=== PATIENT | female | born 1960 | race Caucasian/White ===

== ENCOUNTER 2019-01-04 12:04 | Emergency (ER) | payer OTHER ==
[~2019-01-04] VITALS: Ht 162.6 cm; Wt 76.2 kg
[2019-01-04 12:19] LABS: URINE BILIRUBIN NEGATIVE (Negative); URINE BLOOD 2+ (Negative); URINE CLARITY CLEAR; URINE COLOR YELLOW; URINE GLUCOSE-RANDOM NEGATIVE (Negative); URINE KETONES NEGATIVE (Negative); URINE LEUKOCYTES-REFLEX 1+ (Negative); URINE NITRITE-REFLEX NEGATIVE (Negative); URINE PROTEIN NEGATIVE (Negative); URINE UROBILINOGEN 0.2 E.U./dl (0.2-1.0)
[2019-01-04] MEDS ORDERED: LISINOPRIL10 MG PO (12:19)
[2019-01-04] MEDS ORDERED: INDERAL LA80 MG PO (12:19)
[2019-01-04] MEDS ORDERED: TRIAMTERENE-HC1 EAC2 PO (12:20)
[2019-01-04] MEDS ORDERED: ESTRACE0.5 MG PO (12:22)
[2019-01-04] MEDS ORDERED: OMEPRAZOLE 20 M20 M1 PO (12:22)
[2019-01-04 12:31] LABS: ABSOLUTE BASOPHILS 0.1 thou/uL (0.0-0.2); ABSOLUTE EOSINOPHILS 0.1 thou/uL (0.0-0.7); ABSOLUTE MONOCYTES 0.5 thou/uL (0.0-1.2); ABSOLUTE NEUTROPHILS 5.4 thou/uL (1.6-8.1); BASOPHILS 0.8 %; EOSINOPHILS 1.6 %; HEMATOCRIT 46.1 % (37.0-47.0); HEMOGLOBIN 15.9 gm/dL (12.0-15.0); LYMPHOCYTES 32.9 %; MCH 28.2 pg (26.0-34.0); MCHC 34.5 g/dL (28.0-37.0); MCV 81.9 fL (80.0-100.0); MONOCYTES 5.9 %; NUCLEATED RBCS 0 /100WBC; PLATELET COUNT* 286 thou/uL (150-400); POLYS 58.8 %; RBC 5.64 mil/uL (4.20-5.00); RDW-CV 14.1 % (10.5-14.5); WBC 9.2 thou/uL (4.0-11.0)
[2019-01-04 12:39] LABS: SQUAMOUS 0-3 Few /LPF (0-3)
[2019-01-04 12:40] LABS: BACTERIA-REFLEX >30 Many /HPF (None Seen); CASTS None Seen /LPF (None Seen); CRYSTALS None Seen /LPF (None Seen); URINE RBC 3-10 Few /HPF (0-2); WBC CLUMPS Few (None Seen)
[2019-01-04 12:51] LABS: CALCIUM 9.2 mg/dL (8.5-10.1); CREATININE 1.6 mg/dL (0.6-1.3); POTASSIUM 4.1 mmol/L (3.5-5.1)
[2019-01-04 12:55] LABS: ALBUMIN 3.7 g/dL (3.4-5.0); TOTAL BILIRUBIN 0.5 mg/dL (<0.1-1.0); TOTAL PROTEIN 7.6 g/dL (6.4-8.2)
[2019-01-04] MEDS ORDERED: CIPROFLOXACIN500 M1 PO (14:13)
[2019-01-04] MEDS ORDERED: DIFLUCAN150 MG PO (14:34)
[2019-01-04 14:46] VITALS: BP 132/78
--- NOTE | 2019-01-05 11:41 | EKG ---
[place] [address] ELECTROCARDIOGRAM REPORT Name: COURTNEY GALE Room: [facility]#: [id number] Admission: 01/04/19 Attend Phys: Discharge: 01/04/19 Date of : 62 Report #: [id number] THIS REPORT FOR: //name// 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
== END 2019-01-04 14:47 | disposition home or self-care (01) ==
LOC: M.ERS 12:04
PROVIDERS: Family Medicine
DX: N39.0 Urinary tract infection, site not specified (principal); I10 Essential (primary) hypertension; Z90.710 Acquired absence of both cervix and uterus; Z90.49 Acquired absence of other specified parts of digestive tract